=== PATIENT | male | born 1980 | race Caucasian/White ===

== ENCOUNTER 2019-03-07 14:42 | Emergency (ER) | payer SELFPAY ==
--- NOTE | 2019-03-07 17:26 | RAD REPORT ---
EXAM DESCRIPTION: Rox Kay (2 Views)03/07/2019 3:39 pm CLINICAL HISTORY: Cough COMPARISON: None FINDINGS: The lungs appear clear of acute infiltrate. The heart is normal size IMPRESSION: No acute abnormalities displayed
--- NOTE | 2019-03-07 17:34 | EDPHYS ---
Physician Documentation [facility] Name: Jovany Marcum Age: 38 yrs Sex: Male : 1980 Arrival Date: 03/07/2019 Time: 14:45 Bed 20 Private MD: ED Physician Sebastien Dobbs HPI: 03/07 15:26 This 38 yrs old Male presents to ER via EMS with complaints of chlorine snw exposure. 15:26 The patient presents to the emergency department with a known poisoning, as a result of snw a work exposure, chlorine cloud. 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 Associated signs and symptoms: The patient has no apparent associated signs or symptoms. Severity of symptoms: At their worst the symptoms were very mild in the emergency department the symptoms have resolved. The patient has not experienced similar symptoms in the past. It is unknown whether or not the patient has recently seen a physician. hx of scratchy throat when weather changes and attributes his throat irritation to that. Historical: - Allergies: 14:52 No Known Allergies; bp - Home Meds: 14:52 None [Active]; bp - PMHx: 14:52 Hypertension; bp - Immunization history:: Adult Immunizations up to date. - Social history:: Smoking status: Patient/guardian denies using tobacco. - Ebola Screening: : No symptoms or risks identified at this time. ROS: 15:26 Constitutional: Negative for fever, chills, and weight loss, Eyes: Negative for injury, snw pain, redness, and discharge, ENT: Negative for injury, pain, and discharge, Neck: Negative for injury, pain, and swelling, Cardiovascular: Negative for chest pain, palpitations, and edema, Respiratory: Negative for shortness of breath, cough, wheezing, and pleuritic chest pain, Abdomen/GI: Negative for abdominal pain, nausea, vomiting, diarrhea, and constipation, Back: Negative for injury and pain, : Negative for injury, bleeding, discharge, and swelling, MS/Extremity: Negative for injury and deformity, Skin: Negative for injury, rash, and discoloration, Neuro: Negative for headache, weakness, numbness, tingling, and seizure. Exam: 15:26 Constitutional: This is a well developed, well nourished patient who is awake, alert, snw and in no acute distress. Head/Face: Normocephalic, atraumatic. Eyes: Pupils equal round and reactive to light, extra-ocular motions intact. Lids and lashes normal. Conjunctiva and sclera are non-icteric and not injected. Cornea within normal limits. Periorbital areas with no swelling, redness, or edema. ENT: Nares patent. No nasal discharge, no septal abnormalities noted. Tympanic membranes are normal and external auditory canals are clear. Oropharynx with no redness, swelling, or masses, exudates, or evidence of obstruction, uvula midline. Mucous membranes moist. Neck: Trachea midline, no thyromegaly or masses palpated, and no cervical lymphadenopathy. Supple, full range of motion without nuchal rigidity, or vertebral point tenderness. No Meningismus. Chest/axilla: Normal chest wall appearance and motion. Nontender with no deformity. No lesions are appreciated. Cardiovascular: Regular rate and rhythm with a normal S1 and S2. No gallops, murmurs, or rubs. Normal PMI, no JVD. No pulse deficits. Respiratory: Lungs have equal breath sounds bilaterally, clear to auscultation and percussion. No rales, rhonchi or wheezes noted. No increased work of breathing, no retractions or nasal flaring. Abdomen/GI: Soft, non-tender, with normal bowel sounds. No distension or tympany. No guarding or rebound. No evidence of tenderness throughout. Back: No spinal tenderness. No costovertebral tenderness. Full range of motion. Skin: Warm, dry with normal turgor. Normal color with no rashes, no lesions, and no evidence of cellulitis. MS/ Extremity: Pulses equal, no cyanosis. Neurovascular intact. Full, normal range of motion. Neuro: Awake and alert, GCS 15, oriented to person, place, time, and situation. Cranial nerves II-XII grossly intact. Motor strength 5/5 in all extremities. Sensory grossly intact. Cerebellar exam normal. Normal gait. Psych: Awake, alert, with orientation to person, place and time. Behavior, mood, and affect are within normal limits. Vital Signs: 14:52 BP 171 / 108; Pulse 103; Resp 20; Temp 98; Pulse Ox 96% ; Weight 117.93 kg; bp 15:50 BP 162 / 97; Pulse 91; Resp 18; Pulse Ox 95% ; bp 17:29 BP 159 / 92; Pulse 91; Resp 16; Temp 98.3; Pulse Ox 98% ; bp MDM: 14:55 Patient medically screened. snw 17:32 Data reviewed: vital signs, nurses notes. Data interpreted: Pulse oximetry: on room air snw is 98 %. Interpretation: normal. Counseling: I had a detailed discussion with the patient and/or guardian regarding: the historical points, exam findings, and any diagnostic results supporting the discharge/admit diagnosis, the presence of at least one elevated blood pressure reading (>120/80) during this emergency department visit, radiology results, the need for outpatient follow up, to return to the emergency department if symptoms worsen or persist or if there are any questions or concerns that arise at home. Special discussion: Based on the history and exam findings, there is no indication for further emergent testing or inpatient evaluation. I discussed with the patient/guardian the need to see the primary care provider for further evaluation of the symptoms. 03/07 15:22 Order name: Chest Pa And Lat (2 Views) XRAY; Complete Time: 17:32 snw 03/07 17:22 Order name: VS Recheck; Complete Time: 17:30 snw Administered Medications: No medications were administered Disposition: 03/08 07:29 Co-signature as Attending Physician, Sebastien Dobbs MD. Disposition: 03/07/19 17:32 Discharged to Home. Impression: Contact with and (suspected) exposure to hazardous, chiefly nonmedicinal, chemicals. - Condition is Stable. - Discharge Instructions: Chemical Inhalation Injury, Adult. - Medication Reconciliation Form, Thank You Letter, Antibiotic Education, Prescription Opioid Use, Work release form form. - Follow up: Private Physician; When: 1 - 2 days; Reason: Recheck today's complaints, Continuance of care, Re-evaluation by your physician. Follow up: Emergency Department; When: As needed; Reason: Trouble breathing, Worsening of condition. - Notes: Approriate medications prn per Dr. Martínez in the morning. Signatures: Dispatcher [employer] EDMS Hermelinda Nova, OPERATOR-C OPERATOR-Csnw Sebastien Dobbs MD MD Moreno Hand RN RN bp Corrections: (The following items were deleted from the chart) 03/07 17:44 17:32 03/07/2019 17:32 Discharged to Home. Impression: Contact with and (suspected) bp exposure to hazardous, chiefly nonmedicinal, chemicals. Condition is Stable. Discharge Instructions: Chemical Inhalation Injury, Adult. Prescriptions for Albuterol Sulfate 90 mcg/actuation - inhale 1-2 puff by INHALATION route every 4-6 hours; 1 Inhaler. and Forms are Medication Reconciliation Form, Thank You Letter, Antibiotic Education, Prescription Opioid Use. Follow up: Private Physician; When: 1 - 2 days; Reason: Recheck today's complaints, Continuance of care, Re-evaluation by your physician. Follow up: Emergency Department; When: As needed; Reason: Trouble breathing, Worsening of condition. snw 18:05 17:44 03/07/2019 17:32 Discharged to Home. Impression: Contact with and (suspected) bp exposure to hazardous, chiefly nonmedicinal, chemicals. Condition is Stable. Discharge Instructions: Chemical Inhalation Injury, Adult. Prescriptions for Albuterol Sulfate 90 mcg/actuation - inhale 1-2 puff by INHALATION route every 4-6 hours; 1 Inhaler. and Forms are Medication Reconciliation Form, Thank You Letter, Antibiotic Education, Prescription Opioid Use, Work release form. Follow up: Private Physician; When: 1 - 2 days; Reason: Recheck today's complaints, Continuance of care, Re-evaluation by your physician. Follow up: Emergency Department; When: As needed; Reason: Trouble breathing, Worsening of condition. bp
--- NOTE | 2019-03-07 17:34 | ER ---
Nurse's Notes [facility] Name: Jovany Marcum Age: 38 yrs Sex: Male : 1980 Arrival Date: 03/07/2019 Time: 14:45 Bed 20 Private MD: Diagnosis: Contact with and (suspected) exposure to hazardous, chiefly nonmedicinal, chemicals Presentation: 03/07 14:51 Presenting complaint: EMS states: EXPOSURE TO CHLORINE AT WORK. Transition of care: bp patient was not received from another setting of care. Onset of symptoms is unknown. Risk Assessment: Do you want to hurt yourself or someone else? Patient reports no desire to harm self or others. Initial Sepsis Screen: Does the patient meet any 2 criteria? No. Patient's initial sepsis screen is negative. Does the patient have a suspected source of infection? No. Patient's initial sepsis screen is negative. Care prior to arrival: DEC. 14:51 Method Of Arrival: EMS: [facility] bp 14:51 Acuity: ZUHAIR 3 bp Triage Assessment: 14:52 General: Appears in no apparent distress. comfortable, Behavior is cooperative, bp appropriate for age, anxious. Pain: Denies pain. EENT: No deficits noted. Neuro: No deficits noted. Cardiovascular: Rhythm is sinus tachycardia. Respiratory: No deficits noted. GI: No signs and/or symptoms were reported involving the gastrointestinal system. : No signs and/or symptoms were reported regarding the genitourinary system. Derm: No deficits noted. Musculoskeletal: No deficits noted. Historical: - Allergies: 14:52 No Known Allergies; bp - Home Meds: 14:52 None [Active]; bp - PMHx: 14:52 Hypertension; bp - Immunization history:: Adult Immunizations up to date. - Social history:: Smoking status: Patient/guardian denies using tobacco. - Ebola Screening: : No symptoms or risks identified at this time. Screenin:54 Abuse screen: Denies threats or abuse. Denies injuries from another. Nutritional bp screening: No deficits noted. Tuberculosis screening: No symptoms or risk factors identified. Fall Risk None identified. Assessment: 14:53 General: SEE TRIAGE NOTE. bp 15:50 Reassessment: PT RETURNED FROM XRAY. bp 17:42 Reassessment: PT D/C HOME AMBULATORY WITH FRIEND, DX WITH CONTACT WITH HAZARDOUS bp MATERIAL. Vital Signs: 14:52 BP 171 / 108; Pulse 103; Resp 20; Temp 98; Pulse Ox 96% ; Weight 117.93 kg; bp 15:50 BP 162 / 97; Pulse 91; Resp 18; Pulse Ox 95% ; bp 17:29 BP 159 / 92; Pulse 91; Resp 16; Temp 98.3; Pulse Ox 98% ; bp ED Course: 14:45 Patient arrived in ED. iw 14:51 Moreno Hand, RN is Primary Nurse. bp 14:52 Triage completed. bp 14:52 Arm band placed on. bp 14:54 Hermelinda Nova FNP-C is PHCP. snw 14:54 Sebastien Dobbs MD is Attending Physician. snw 14:54 Patient has correct armband on for positive identification. Bed in low position. Call bp light in reach. Side rails up X2. 15:39 Chest Pa And Lat (2 Views) XRAY In Process Unspecified. EDMS 17:29 No provider procedures requiring assistance completed. Patient did not have IV access bp during this emergency room visit. Administered Medications: No medications were administered Outcome: 17:32 Discharge ordered by . snw 17:43 Discharged to home ambulatory, with family. bp 17:43 Condition: stable 17:43 Discharge instructions given to patient, Instructed on discharge instructions, follow up and referral plans. medication usage, Demonstrated understanding of instructions, follow-up care, medications, Prescriptions given X 1. 17:44 Patient left the ED. bp 18:05 Patient left the ED. bp Signatures: Dispatcher [employer] EDMS Hermelinda Nova FNP-C FNP-Arielle Ash RN RN Moreno Hand, RN RN bp
[2019-03-07 19:29] VITALS: BP 159/92; TEMP 98.3; O2SAT 98
== END 2019-03-07 18:05 | disposition home or self-care (01) ==
LOC: ER 14:42
DX: Z77.098 Contact with and (suspected) exposure to other hazardous, chiefly nonmedicinal, chemicals (principal); I10 Essential (primary) hypertension
CPT/HCPCS: 71046; 99284